=== PATIENT | male | born 1990 | race Caucasian/White ===

== ENCOUNTER 2017-01-15 18:04 | Emergency (ER) | payer SELFPAY ==
[2017-01-15 18:05] VITALS: BP 116/66; PULSE 124; RESP 20; TEMP 98.4; O2SAT 95
[2017-01-15] MEDS ORDERED: SODIUM CHLOR 0.9% 1000 ML INJ 1,000 ML IV ONE (18:45)
--- NOTE | 2017-01-15 18:50 | PD ---
HPI Chief Complaint: Medical Clearance Time Seen by Provider: 18:43 Travel History International Travel<30 days: No Contact w/Intl Traveler<30days: No Traveled to known affect area: No History of Present Illness HPI The patient is a 26-year-old male who presents to the emergency department for medical clearance for detoxification. The patient has a history of heroin abuse, benzodiazepine abuse, and alcohol abuse. The patient last used alcohol earlier today at approximately noon. The patient last took Klonopin 2 mg approximately one hour prior to arrival. The patient went to the [facility] in [place], [place] just prior to arrival and was referred to the emergency department for medical clearance prior to admission to the rehabilitation Center. The patient denies any current physical complaints including chest pain, shortness breath, nausea, vomiting, or abdominal pain. The patient takes approximate 5-10 mg daily of Xanax and Klonopin, drinks on a daily basis, and uses heroin intermittently. He denies any suicidal or homicidal ideation. PFSH Past Medical History Narrative Medical Substance abuse, IVDA Past Surgical History Narrative Surgical Noncontributory Social History Alcohol Use: Yes Tobacco Use: Yes Substance Use: Yes Allergies-Medications (Allergen,Severity, Reaction): Coded Allergies: No Known Allergies (Unverified , 01/15/17) Reported Meds & Prescriptions Reported Meds & Active Scripts Active Reported Klonopin (Clonazepam) 1 Mg Tab 1 Mg PO TID Review of Systems Except as stated in HPI: all other systems reviewed are Neg HENT: No: Lightheadedness Cardiovascular: No: Chest Pain or Discomfort Respiratory: No: Shortness of Breath Gastrointestinal: No: Nausea, Vomiting Psychiatric: Positive: Substance Abuse, No: Suicidal Ideations, Homicidal Ideation Physical Exam Narrative GENERAL: Awake, alert, pleasant 26-year-old male who appears his stated age and is in no acute respiratory distress. SKIN: Focused skin assessment warm/dry. HEAD: Atraumatic. Normocephalic. EYES: Pupils equal and round. Pupils are 3 mm bilateral and reactive. ENT: No nasal bleeding or discharge. Mucous membranes pink and moist. NECK: Trachea midline. No JVD. CARDIOVASCULAR: Regular, tachycardic with a heart rate 110. RESPIRATORY: No accessory muscle use. Clear to auscultation. Breath sounds equal bilaterally. GASTROINTESTINAL: Abdomen soft, non-tender, nondistended. No rebound tenderness. MUSCULOSKELETAL: No obvious deformities. No clubbing. No cyanosis. No edema. NEUROLOGICAL: Awake and alert. No obvious cranial nerve deficits. Motor grossly within normal limits. Normal speech. Nonfocal. PSYCHIATRIC: Appropriate mood and affect; insight and judgment normal. Data Data Last Documented VS Vital Signs Date Time Temp Pulse Resp B/P Pulse Ox O2 Delivery O2 Flow Rate FiO2 01/15/17 18:05 98.4 124 20 116/66 95 Room Air Orders Complete Blood Count With Diff (01/15/17 18:09) Comprehensive Metabolic Panel (01/15/17 18:09) Drug Screen, Random Urine (01/15/17 18:09) Alcohol (Ethanol) (01/15/17 18:09) Sodium Chlor 0.9% 1000 Ml Inj (Ns 1000 M (01/15/17 18:45) Magnesium (Mg) (01/15/17 18:43) Labs Laboratory Tests Test 01/15/17 01/15/17 17:30 18:30 Urine Opiates Screen POS Urine Barbiturates Screen NEG Urine Amphetamines Screen NEG Urine Benzodiazepines Screen POS Urine Cocaine Screen NEG Urine Cannabinoids Screen NEG White Blood Count 9.0 TH/MM3 Red Blood Count 5.43 MIL/MM3 Hemoglobin 16.8 GM/DL Hematocrit 47.6 % Mean Corpuscular Volume 87.7 FL Mean Corpuscular Hemoglobin 30.9 PG Mean Corpuscular Hemoglobin 35.2 % Concent Red Cell Distribution Width 14.0 % Platelet Count 194 TH/MM3 Mean Platelet Volume 9.7 FL Neutrophils (%) (Auto) 48.8 % Lymphocytes (%) (Auto) 35.9 % Monocytes (%) (Auto) 10.3 % Eosinophils (%) (Auto) 3.7 % Basophils (%) (Auto) 1.3 % Neutrophils # (Auto) 4.4 TH/MM3 Lymphocytes # (Auto) 3.2 TH/MM3 Monocytes # (Auto) 0.9 TH/MM3 Eosinophils # (Auto) 0.3 TH/MM3 Basophils # (Auto) 0.1 TH/MM3 CBC Comment DIFF FINAL Differential Comment Sodium Level 137 MEQ/L Potassium Level 3.9 MEQ/L Chloride Level 103 MEQ/L Carbon Dioxide Level 24.7 MEQ/L Anion Gap 9 MEQ/L Blood Urea Nitrogen 15 MG/DL Creatinine 0.88 MG/DL Estimat Glomerular Filtration 106 ML/MIN Rate Random Glucose 80 MG/DL Calcium Level 9.2 MG/DL Total Bilirubin 0.4 MG/DL Aspartate Amino Transf 169 U/L (AST/SGOT) Alanine Aminotransferase 290 U/L (ALT/SGPT) Alkaline Phosphatase 125 U/L Total Protein 8.3 GM/DL Albumin 3.9 GM/DL Ethyl Alcohol Level 11 MG/DL [facility] Medical Decision Making Medical Screen Exam Complete: Yes Emergency Medical Condition: Yes Medical Record Reviewed: Yes Differential Diagnosis Differential diagnosis includes polysubstance abuse, substance abuse, addiction , benzodiazepine withdrawal, alcohol withdrawal, electrolyte abnormality, dehydration. Narrative Course IV was established, labs are drawn and sent, and the patient was placed on cardiac telemetry monitoring and continuous pulse oximetry monitoring. The patient was mildly tachycardic, but has no tremors or physical complaints. The patient took Klonopin 2 mg approximately one hour prior to arrival, therefore, no Librium was administered. The patient was household cook 1 L of IV fluids. AST nail tear moderately elevated in the 102 100s, he denies any acute abdominal pain. He does have a history of IVDA may benefit from outpatient hepatitis C testing. Alcohol level was 11. Patient is medically clear to go to rehabilitation. He should follow up for repeat LFTs and hepatitis panel on an outpatient basis. Diagnosis Primary Impression: Polysubstance abuse Additional Impression: Elevated transaminase level Additional Instructions: Follow-up at rehabilitation as previously directed. Outpatient repeat LFTs and hepatitis profile with her primary physician. Return if symptoms worsen or progress. Condition: Stable Andrew Chand MD Jan 15, 2017 18:50
[2017-01-15 18:52] LABS: AUTOMATED NEUTROPHIL # 4.4 TH/MM3 (1.8-7.7); BASOPHIL # 0.1 TH/MM3 (0-0.2); BASOPHIL % 1.3 % (0.0-2.0); EOSINOPHIL # 0.3 TH/MM3 (0-0.4); EOSINOPHIL % 3.7 % (0.0-4.0); HEMATOCRIT 47.6 % (39.0-51.0); HEMO FLAGS DIFF FINAL; LYMPH % 35.9 % (9.0-44.0); LYMPHOCYTE # 3.2 TH/MM3 (1.0-4.8); MEAN CELL VOLUME 87.7 FL (80.0-100.0); MEAN CORPUSCULAR HEMOGLOBIN 30.9 PG (27.0-34.0); MEAN CORPUSCULAR HGB CONC 35.2 % (32.0-36.0); MONO % 10.3 % (0.0-8.0); NEUT % 48.8 % (16.0-70.0); PLATELET COUNT 194 TH/MM3 (150-450); RED BLOOD COUNT 5.43 MIL/MM3 (4.50-5.90)
[2017-01-15] MEDS ORDERED: CLON1 PO (18:54)
[2017-01-15 19:02] LABS: AMPHETAMINE, URINE NEG (NEG); BARBITURATES, URINE NEG (NEG); COCAINE, URINE NEG (NEG)
[2017-01-15 19:18] LABS: ALT (GPT) 290 U/L (12-78)
[2017-01-15 19:20] LABS: ALKALINE PHOSPHATASE 125 U/L (45-117); TOTAL BILIRUBIN ADULT 0.4 MG/DL (0.2-1.0)
[2017-01-15 19:22] LABS: ANION GAP 9 MEQ/L (5-15); AST (GOT) 169 U/L (15-37); BICARBONATE 24.7 MEQ/L (21.0-32.0); BLOOD UREA NITROGEN 15 MG/DL (7-18); CHLORIDE 103 MEQ/L (98-107); GLOMERULAR FILTRATION RATE 106 ML/MIN (>89); POTASSIUM 3.9 MEQ/L (3.5-5.1); SODIUM (NA) 137 MEQ/L (136-145)
[2017-01-15 19:43] VITALS: BP 121/67; PULSE 95; RESP 18; O2SAT 97
== END 2017-01-15 19:53 | disposition home or self-care (01) ==
LOC: NEPD 18:04
DX: F19.10 Other psychoactive substance abuse, uncomplicated (principal); R74.0 Nonspecific elevation of levels of transaminase and lactic acid dehydrogenase [LDH]; F10.10 Alcohol abuse, uncomplicated; Y90.0 Blood alcohol level of less than 20 mg/100 ml; Z72.0 Tobacco use
CPT/HCPCS: 80053; 80307; 83735; 85025; 96360; 99284; J7030